=== PATIENT | male | born 1960 | race Asian ===

== ENCOUNTER 2019-12-16 14:27 | Emergency (ER) | payer OTHER ==
[2019-12-16 15:48] VITALS: BP 170/93
--- NOTE | 2019-12-16 16:12 | UC ---
[facility] HPI HPI Summary: PATIENT WORKS PART-TIME AT [employer] AND STATES HE DID GO [place] [employer] IN THE TIME PERIOD WHEN THE [employer] WHO TESTED POSITIVE FOR COVID19 WAS WORKING. STATES HIS ARMS FELT HOT SO WAS WONDERING IF HE HAD FEVER AND HAS COME IN HERE FOR COVID19 TESTING. PATIENT DENIES ANY OTHER RESPIRATORY SYMPTOMS. Telehealth PMH Cardiovascular History: Reports: Hx Hypertension - PT STATES HE HAS NOT TAKEN HIS MEDS FOR SEVERAL DAYS Infectious Disease History: Yes Infectious Disease History: Reports: Hx Hepatitis - Family History Known Family History: Positive: None Negative: Hypertension - Social History Alcohol Use: Daily Alcohol Amount: 4 beers Substance Use Type: Reports: None Hx Tobacco Use: No Smoking Status (MU): [facility] Other Systems Reviewed And Are Negative: Yes Positive: Fever - SUBJECTIVE Eyes: Negative ENT: Negative Cardiovascular: Negative Respiratory: Negative Gastrointestinal: Negative Genitourinary: Negative Musculoskeletal: Negative Skin: Negative Neurological/Mental Status: Negative Psychological: Normal Telehealth PE Telehealth Physical Exam: TO DECREASE THE RISK OF TRANSMISSION OF POSSIBLE COVID-19 I CONDUCTED THIS INTERVIEW USING TELEMEDICINE WHICH LIMITS THE PHYSICAL EXAM. Vital Signs (72 hours) 12/16/19 15:35 Temperature 98.6 F Pulse Rate 84 Respiratory 16 Rate Blood Pressure 170/93 (mmHg) O2 Sat by Pulse 98 Oximetry Appearance: Positive: Alert and Oriented ENT: Positive: Hearing grossly normal Respiratory/Lung Sounds: Positive: Other - SPEAKING NORMALLY IN FULL SENTENCES Neurological: Positive: Alert, Oriented to Person Place, Time Psychiatric: Positive: Affect/Mood Appropriate [facility] Course/Dx Assessment/Plan: PT WITH NO SYMPTOMS BUT WENT TO [employer] WHEN LUCINDA WHO TESTED POSITIVE FOR COVID-19 WAS WORKING. TESTING FOR COVID19 DONE TODAY. PATIENT BEING DISCHARGED HOME TO SELF-ISOLATION AND WILL BE CONTACTED BY HD WITH RESULTS. CONTACT/DROPLET PRECAUTIONS TAKEN BY NURSING DURING ENCOUNTER. TO DECREASE THE RISK OF TRANSMISSION OF POSSIBLE COVID-19 MY PART OF THE INTERVIEW WAS DONE USING TELEMEDICINE. Provider Diagnoses: Feeling worried [facility] Disposition Provider Recommendation for Treatment: Home/Supportive Care Telehealth Visit: Patient Consented Verbally to Telehealth Visit Telehealth Patient Statement: The patient should understand that they are communicating with their provider via a secure communication platform and that all the same privacy and confidentiality rules apply. They will also be responsible for copayments or coinsurances that apply to any Telehealth visit. Patient Identifiers: 2 Patient Identifiers Verified for Telehealth Visit Telehealth Visit Start Time: 15:30 Telehealth Visit End Time: 15:40 Telehealth Provider Attestation: The above services were appropriate to provide in a Telehealth setting.
== END 2019-12-16 15:48 | disposition home or self-care (01) ==
LOC: UCEAST 14:27
DX: Z20.828 Contact with and (suspected) exposure to other viral communicable diseases (principal); I10 Essential (primary) hypertension
CPT/HCPCS: 87635; 99212; G0463; G2023; Q3014